=== PATIENT | male | born 1935 | race African-American/Black ===

== ENCOUNTER 2016-03-26 16:41 | Emergency (ER) | payer MEDICARE, MEDICAID ==
[~2016-03-26] VITALS: Ht 180.3 cm; Wt 81.6 kg
[2016-03-26 17:18] VITALS: BP 157/87
[2016-03-26] MEDS ORDERED: CAPSAICIN60 GM TP (17:33)
[2016-03-26] MEDS ORDERED: GABAPENTIN300 MG ORAL (17:33)
[2016-03-26 17:45] VITALS: BP 157/87
--- NOTE | 2016-03-26 18:58 | Emergency Room Report ---
History of Present Illness General Chief Complaint: Pain Source: Patient Present Illness HPI Patient is a 80-year-old male who presented after having increased that to the right side of his chest wall. Patient had gradual onset of symptoms over the past few weeks. Patient had recently been diagnosed with shingles and had not been having any fever. Patient had no relief with topical steroids and had recently finished acyclovir. Patient denied any shortness of breath. The patient had recurrence of shingles after initial outbreak. The patient was concerned that he is having increasing pain as a burning sensation severe in nature Patient History Past Medical History: see triage record Reviewed Nursing Documentation: PMH: Agreed, PSxH: Agreed Nursing Documentation-PM Past Medical History: No History, Except For Hx Cardiac Problems: Yes - Cardiomegaly Review of Systems All Other Systems: negative except mentioned in HPI Physical Exam Vital Signs Date Time Temp Pulse Resp B/P Pulse Ox O2 Delivery O2 Flow Rate FiO2 03/26/16 17:14 98.1 83 16 157/87 100 Room Air General Appearance: well appearing, no apparent distress, alert, GCS 15 Head: normocephalic, atraumatic ENT: hearing grossly normal, normal voice Neck: full range of motion, supple Respiratory: no respiratory distress, speaking full sentences Gastrointestinal: normal inspection, normal bowel sounds, non tender, soft Musculoskeletal: normal inspection, digits/nails normal, no calf tenderness Neurologic: normal inspection, alert, oriented x3, responsive, normal gait Psychiatric: mood/affect normal Skin: other - dermatomal distribution rash to upper right chest wall, no active papules or vesicles Medical Decision Making Diagnostic Impression: Primary Impression: Post herpetic neuralgia ER Course Patient presented for skin rash. Differential diagnosis included was not limited to chest wall pain, allergic contact dermatitis, shingles, postherpetic neuralgia among others. Patient's benign exam and does not appear to require any further imaging or laboratory testing at this time. The patient appears to have no active shingles lesions at this time. Patient was given prescriptions for Neurontin as well as capsaicin cream. The patient is advised to follow up with primary care doctor in 1-2 days. Patient is advised to return if any worsening condition or if any changes in status that are concerning. Last Vital Signs Date Time Temp Pulse Resp B/P Pulse Ox O2 Delivery O2 Flow Rate FiO2 03/26/16 17:45 98.1 16 157/87 100 Room Air 03/26/16 17:18 82 Status: improved Disposition: HOME, SELF-CARE Condition: Stable Scripts Gabapentin* (GABAPENTIN*) 300 Mg Capsule 300 MG ORAL THREE TIMES A DAY, #30 CAP 0 Refills Prov: Chriss Ward 03/26/16 Capsaicin (CAPSAICIN) 60 Gm Cream..g. 60 GM TP DAILY for 7 Days, #60 GM Prov: Chriss Ward 03/26/16 Patient Instructions: Postherpetic Neuralgia Chriss Ward Mar 26, 2016 18:58
== END 2016-03-26 17:45 | disposition home or self-care (01) ==
LOC: EMR 17:40
DX: B02.29 Other postherpetic nervous system involvement (principal)
CPT/HCPCS: 99284